=== PATIENT | female | born 1955 | race Hispanic/Latino ===

== ENCOUNTER 2022-02-18 16:41 | Emergency (ER) | payer OTHER ==
[2022-02-18] MEDS ORDERED: HYDROCODONE/APAP 5/325 MG TAB ONE (18:31)
--- NOTE | 2022-02-18 19:05 | RAD REPORT ---
EXAM DESCRIPTION: CT - CTHCSPWOC - 02/18/2022 6:45 pm CLINICAL HISTORY: fall COMPARISON: <Comparisons> TECHNIQUE: Axial 5 mm thick images of the head were obtained. Axial 2 mm thick images of the cervic al spine were obtained with sagittal and coronal reconstruction images generated and reviewed. All CT scans are performed using dose optimization technique as appropriate and may include automated exposure control or mA/KV adjustment according to patient size. FINDINGS: No intracranial hemorrhage, mass, edema or acute intracranial finding. No suspicion for ac flandreau cortical level infarction infarction. No cortical edema or sulcal effacement. Atrophy is progress ed minimally since 2014. Focal areas of diminished attenuation near each genu of the internal capsule are new from 2014 and have the appearance of old lacune or infarctions. Chronic ischemic changes are minimal. Ventricles are in proportion to any volume loss. Mastoid air cells and paranasal sinuses ar e clear. No globe or orbit abnormality seen. No skull fracture. No measurable scalp hematoma. Move Cervical bodies are normal in height. C5-6 well-healed fusion surgical changes are noted. C4-5 disc s pace is narrowed with very slight retrolisthesis of C4. This is progressive from the prior study. C6- 7 disc space narrowing not substantially different from 2014. Mild bony foraminal encroachment at C6- 7. No fracture or acute bony abnormality. No pathologic bone process. Central canal detail is inheren tly limited. No paraspinal mass or hematoma. IMPRESSION: Negative CT head examination for acute or significant finding. Negative CT cervical spine examination for acute finding. Progressive degenerative change at the C4- 5 disc level since 2014.
--- NOTE | 2022-02-18 19:10 | RAD REPORT ---
EXAM DESCRIPTION: RAD - Humerus Right - 02/18/2022 6:44 pm CLINICAL HISTORY: fall COMPARISON: No comparisons FINDINGS: No fracture is identified. There is no dislocation or periosteal reaction noted. AC joint degenerative changes are present. There is moderate superiorly directed spurring and capsular thicken ing. Inferiorly directed spurring is minimal. Acromial humeral joint space is normal thickness. No jackman spicious soft tissue calcification. No foreign body or other soft tissue abnormality. IMPRESSION: Negative right humerus examination for acute finding.
--- NOTE | 2022-02-18 19:11 | RAD REPORT ---
EXAM DESCRIPTION: RAD - Humerus Left - 02/18/2022 6:44 pm CLINICAL HISTORY: Fall, arm pain COMPARISON: None. FINDINGS: No fracture is identified. There is no dislocation or periosteal reaction noted. AC joint degenerative changes minimal. No AC separation. Acromial humeral joint space is normal range. No for eign body or other soft tissue abnormality. IMPRESSION: Negative left humerus examination for acute finding.
--- NOTE | 2022-02-18 19:12 | RAD REPORT ---
EXAM DESCRIPTION: RAD - Hand Right 3 View - 02/18/2022 6:44 pm CLINICAL HISTORY: fall COMPARISON: No comparisons FINDINGS: No fracture is identified. There is no dislocation or periosteal reaction noted. IP joint space narrowing is present with minimal spurring along the articular margins. No erosive component. M CP joints are generally spared any significant degree of degenerative change. No foreign body or sign ificant soft tissue abnormality. IMPRESSION: Negative right hand examination for acute finding.
--- NOTE | 2022-02-18 19:13 | RAD REPORT ---
EXAM DESCRIPTION: RAD - Hand Left 3 View - 02/18/2022 6:44 pm CLINICAL HISTORY: fall COMPARISON: None. FINDINGS: No fracture, dislocation or periosteal reaction noted. IP joint space narrowing is present with minimal marginal spurring. No erosive component. MCP joints are generally spared. No foreign bruno dy or other soft tissue abnormality. IMPRESSION: Negative left hand examination for acute finding.
--- NOTE | 2022-02-18 19:29 | EDPHYS ---
Physician Documentation [facility] Name: Amisha Easley Age: 66 yrs Sex: Female : 1955 Arrival Date: 02/18/2022 Time: 16:44 Bed 6 Private MD: ED Physician Saurabh Howard HPI: 02/18 17:40 This 66 yrs old Female presents to ER via Ambulatory with complaints of Fall jmm Injury. 17:40 Details of fall: The patient fell from an upright position, while walking. Onset: The jmm symptoms/episode began/occurred acutely, just prior to arrival. Associated injuries: The patient sustained injury to the head. This is a 66 year old female that presents to the ED with complaints of headache, arm pain and hand pain following a fall which occurred last night. patient states she tripped, hitting her head against a coffee table. Denies LOC, nausea. vomiting. Denies lower extremity, or hip pain. Historical: - Allergies: 17:09 No Known Allergies; bess - Home Meds: 17:09 lisinopril 10 mg Oral tab 1 tab once daily [Active]; pt take medications from [facility] bess [Active]; Iron CR 250 mg Oral cpER [Active]; 17:12 Xanax 0.25 mg Oral tab 1 tab daily [Active]; tizanidine 2 mg oral cap 1 cap once daily bess [Active]; - Immunization history: Last tetanus immunization: > 10 years ago. - Social history:: Smoking status: Patient denies any tobacco usage or history of. ROS: 17:40 Constitutional: Negative for fever, chills, and weight loss, Cardiovascular: Negative jmm for chest pain, palpitations, and edema, Respiratory: Negative for shortness of breath, cough, wheezing, and pleuritic chest pain. 17:40 MS/extremity: Positive for injury or acute deformity. 17:40 Neuro: Positive for headache. 17:40 All other systems are negative. Exam: 17:40 Constitutional: This is a well developed, well nourished patient who is awake, alert, jmm and in no acute distress. 17:40 Eyes: EOMI, no conjunctival erythema appreciated ENT: Moist Mucus Membranes Neck: Trachea midline, Supple Chest/axilla: Normal chest wall appearance and motion. Cardiovascular: Regular rate and rhythm. No edema appreciated Respiratory: Normal respirations, no respiratory distress appreciated Abdomen/GI: Non distended Back: Normal ROM Skin: General appearance color normal 17:40 Constitutional: The patient appears in no acute distress, alert, awake. 17:40 Head/face: abrasion noted to the forehead. 17:40 Musculoskeletal/extremity: right and left upper arm and hands ttp, full radial pulse bilaterally, full tumbling barrel painter strength, NVI. 17:40 Skin: Appearance: Color: normal in color. 17:40 Neuro: Orientation: is normal, Mentation: is normal, Memory: is normal. 17:40 Psych: Behavior/mood is pleasant, cooperative. Vital Signs: 17:05 BP 106 / 77; Pulse 97; Resp 17; Temp 98.2(O); Pulse Ox 98% on R/A; Weight 46.27 kg; bess Height 5 ft. 1 in. (154.94 cm); 19:42 BP 110 / 83; Pulse 86; Resp 16; Pulse Ox 100% on R/A; jb4 17:05 Body Mass Index 19.27 (46.27 kg, 154.94 cm) bess Bro Coma Score: 17:05 Eye Response: spontaneous(4). Verbal Response: oriented(5). Motor Response: obeys bess commands(6). Total: 15. Trauma Score (Adult): 17:05 Eye Response: spontaneous(1); Verbal Response: oriented(1); Motor Response: obeys bess commands(2); Systolic BP: > 89 mm Hg(4); Respiratory Rate: 10 to 29 per min(4); [place] Score: 15; Trauma Score: 12 MDM: 17:40 Patient medically screened. dwayne 19:27 Data reviewed: vital signs, nurses notes. Counseling: I had a detailed discussion with dwayne the patient and/or guardian regarding: the historical points, exam findings, and any diagnostic results supporting the discharge/admit diagnosis, radiology results, the need for outpatient follow up, to return to the emergency department if symptoms worsen or persist or if there are any questions or concerns that arise at home. 02/18 18:12 Order name: Hand Left 3 View; Complete Time: 19:21 EDNY 02/18 18:12 Order name: Hand Right 3 View; Complete Time: 19:21 EDNY 02/18 18:12 Order name: Humerus Left; Complete Time: 19:21 EDMS 02/18 18:12 Order name: Humerus Right; Complete Time: 19:21 EDMS 02/18 18:21 Order name: Head C Spine Mpr Wo Con; Complete Time: 19:21 EDMS Administered Medications: 18:25 Drug: HYDROcodone-acetaminophen 5 mg-325 mg 1 tabs Route: PO; jl7 Disposition Summary: 02/18/22 19:28 Discharge Ordered Location: Home [facility] Condition: Stable [facility] Diagnosis - Unspecified injury of head, initial encounter [facility] - Arm Contusion [facility] Followup: [facility] - With: Private Physician - When: 2 - 3 days - Reason: Recheck today's complaints, Continuance of care, Re-evaluation by your physician Discharge Instructions: - Discharge Summary Sheet [facility] - Head Injury, Adult [facility] Forms: - Medication Reconciliation Form [facility] - Thank You Letter [facility] - Antibiotic Education [facility] - Prescription Opioid Use [facility] Prescriptions: - orphenadrine citrate 100 mg Oral Tablet Sustained Release - take 1 tablet by ORAL route 2 times per day As needed; 20 tablet; Refills: 0, [facility] Product Selection Permitted Signatures: Dispatcher [employer] EDMS Reji Billy PA PA jmm Leal, Jahala, RN RN jl7 Brinda-Alize Boss RN RN bess Corrections: (The following items were deleted from the chart) 18:21 18:12 C Spine Wo Con ordered. EDMS EDMS 18:46 18:35 Humerus Left+RAD.RAD.BRZ ordered. EDMS EDMS 18:46 18:35 Humerus Right+RAD.RAD.BRZ ordered. EDMS EDMS 18:48 18:35 Head C Spine MPR Wo Con+CT.RAD.BRZ ordered. EDMS EDMS 18:48 18:35 Hand Left 3 View+RAD.RAD.BRZ ordered. EDMS EDMS 18:48 18:35 Hand Right 3 View+RAD.RAD.BRZ ordered. EDMS EDMS
--- NOTE | 2022-02-18 19:29 | ER ---
Nurse's Notes [facility] Name: Amisha Easley Age: 66 yrs Sex: Female : 1955 Arrival Date: 02/18/2022 Time: 16:44 Bed 6 Private MD: Diagnosis: Unspecified injury of head, initial encounter;Arm Contusion Presentation: 02/18 17:05 Chief complaint: Patient states: pt presented to ED reporting trip and fall on bess 02-17-2022. hitting coffee table. denies loc. and not on blodd thinners. pt injured nose, bruising on forehead and bilateral arm/ wrist pain. Care prior to arrival: None. Mechanism of Injury: Fall. Trauma event details: Injury occurred: February 17, 2022. 17:05 Acuity: LISSETTE 3 bess 17:05 Method Of Arrival: Ambulatory Trauma Activation: Consult Physician: ED Physician; Name: ; Notified At: ; Arrived At: Physician: General Surgeon; Name: ; Notified At: ; Arrived At: Physician: Radiology; Name: ; Notified At: ; Arrived At: Physician: Respiratory; Name: ; Notified At: ; Arrived At: Physician: Lab; Name: ; Notified At: ; Arrived At: Historical: - Allergies: 17:09 No Known Allergies; bess - Home Meds: 17:09 lisinopril 10 mg Oral tab 1 tab once daily [Active]; pt take medications from [facility] bess [Active]; Iron CR 250 mg Oral cpER [Active]; 17:12 Xanax 0.25 mg Oral tab 1 tab daily [Active]; tizanidine 2 mg oral cap 1 cap once daily bess [Active]; - Immunization history: Last tetanus immunization: > 10 years ago. - Social history:: Smoking status: Patient denies any tobacco usage or history of. Primary Survey: 17:05 NO uncontrolled hemorrhage observed. A: The client is awake and alert. The airway is bess patent. The client is alert. Breathing/Chest: Spontaneous respiratory effort, equal unlabored respirations, breath sounds clear bilaterally, regular pattern, symmetrical chest rise and fall. Circulation: No external hemorrhage present. Regular and strong central pulse, skin warm/dry/normal color. Disability Client is alert. Assessment: 17:05 General: Appears in no apparent distress. Behavior is calm, cooperative. Pain: bess Complains of pain in right arm, left arm and nose. 19:42 Reassessment: Patient appears in no apparent distress at this time. Patient and/or jb4 family updated on plan of care and expected duration. Pain level reassessed. Patient is alert, oriented x 3, equal unlabored respirations, skin warm/dry/pink. Vital Signs: 17:05 BP 106 / 77; Pulse 97; Resp 17; Temp 98.2(O); Pulse Ox 98% on R/A; Weight 46.27 kg; bess Height 5 ft. 1 in. (154.94 cm); 19:42 BP 110 / 83; Pulse 86; Resp 16; Pulse Ox 100% on R/A; jb4 17:05 Body Mass Index 19.27 (46.27 kg, 154.94 cm) bess Bro Coma Score: 17:05 Eye Response: spontaneous(4). Verbal Response: oriented(5). Motor Response: obeys bess commands(6). Total: 15. Trauma Score (Adult): 17:05 Eye Response: spontaneous(1); Verbal Response: oriented(1); Motor Response: obeys bess commands(2); Systolic BP: > 89 mm Hg(4); Respiratory Rate: 10 to 29 per min(4); [place] Score: 15; Trauma Score: 12 ED Course: 16:44 Patient arrived in ED. jj6 17:08 Triage completed. 17:32 Reji Billy PA is PHCP. [facility] 17:32 Saurabh Howard MD is Attending Physician. [facility] 17:35 Mathew Nails, SANJUANA is Primary Nurse. jl7 18:45 Hand Left 3 View In Process Unspecified. EDMS 18:45 Hand Right 3 View In Process Unspecified. EDMS 18:45 Humerus Left In Process Unspecified. EDMS 18:45 Humerus Right In Process Unspecified. EDMS 18:48 Head C Spine Mpr Wo Con In Process Unspecified. EDMS 19:42 No provider procedures requiring assistance completed. Patient did not have IV access jb4 during this emergency room visit. Administered Medications: 18:25 Drug: HYDROcodone-acetaminophen 5 mg-325 mg 1 tabs Route: PO; jl7 Medication: 19:42 VIS not applicable for this client. jb4 Intake: 17:05 PO: 0ml; Total: 0ml. bess Outcome: 19:28 Discharge ordered by . dwayne 19:42 Discharged to home via wheelchair, with family. jb4 19:42 Condition: stable 19:42 Discharge instructions given to patient, Instructed on discharge instructions, follow up and referral plans. no drinking with medication, no driving heavy equipment, medication usage, Demonstrated understanding of instructions, follow-up care, medications, Prescriptions given X 1. 19:43 Patient left the ED. jb4 Signatures: Dispatcher [employer] EDMS Reji Billy PA PA jmm Bryson, James, RN RN jb4 Mathew Nails RN RN jl7 Priti Altamirano jj6 Alize Diaz RN RN bess
[2022-02-18 19:47] VITALS: TEMP 98.2
[2022-02-18 19:50] VITALS: BP 110/83; O2SAT 100
== END 2022-02-18 19:43 | disposition home or self-care (01) ==
LOC: ER 16:41
DX: S00.83XA Contusion of other part of head, initial encounter (principal); W01.190A Fall on same level from slipping, tripping and stumbling with subsequent striking against furniture, initial encounter; R51.9 Headache, unspecified; M25.532 Pain in left wrist; M25.531 Pain in right wrist; S40.029A Contusion of unspecified upper arm, initial encounter
CPT/HCPCS: 70450; 72125; 99283

== ENCOUNTER 2024-04-18 02:37 | Emergency (ER) | payer OTHER ==
[2024-04-18] MEDS ORDERED: LORazepam 2 MG/ML VIAL ONE (02:52)
[2024-04-18] MEDS ORDERED: LIDOCAINE 1% 20 ML MDV ONE (03:23)
[2024-04-18 03:47] LABS: PT Prothrombin Time 11.5 SECONDS (9.4-12.5); Protime INR 1.03
[2024-04-18 03:53] LABS: Absolute Lymphocytes (CBC) 2.1 K/uL (0.7-4.9); Absolute Monocytes 0.4 K/uL (0.1-1.3); Basophils % 0.4 % (0-1.3); Eosinophils % 0.6 % (0-4.4); Hematocrit 32.9 % (36.0-45.0); Hemoglobin 10.7 g/dL (12.0-15.0); Lymphocytes % 27.8 % (15.3-44.8); MCH 29.1 pg (27.0-35.0); MCHC 32.5 g/dL (32.0-36.0); MCV 89.5 fL (80-100); MPV 9.7 fL (7.6-11.3); Monocytes % 5.7 % (3.3-12.3); Neutrophils % 65.5 % (41.7-73.7); Platelets 186 thou/uL (152-406); RBC Red Blood Cell Count 3.68 M/uL (3.86-4.86)
[2024-04-18 04:02] LABS: Albumin 3.1 g/dL (3.4-5.0); Albumin/Globulin Ratio 0.7 (1.1-1.8); Anion Gap 9.3 mEq/L (5.0-15.0); Bilirubin Direct 0.2 mg/dL (0-0.2); Bilirubin Indirect, Calculated 0.2 mg/dL (0.2-0.8); Bilirubin Total 0.4 mg/dL (0.2-1.0); Globulin 4.2 g/dL (2.3-3.5); Potassium 4.3 mEq/L (3.5-5.1); Protein, Total 7.3 g/dL (6.4-8.2); Troponin High Sensitivity 4.4 pg/mL (<58.9)
--- NOTE | 2024-04-18 06:47 | ER ---
Nurse's Notes [facility] Name: Amisha Easley Age: 68 yrs Sex: Female : 1955 Arrival Date: 04/18/2024 Time: 02:37 Bed 15 Private MD: Diagnosis: Facial Laceration/ Laceration without foreign body of cheek and temporomandibular area;Fall at home, acute facial injury, acute head injury, insomnia, Presentation: 04/18 02:40 Chief complaint: EMS states: PT FELL. POSSIBLY TOOK TO MUCH OF HER AMBIEN AND XANAX. PT jj7 IS CONFUSED. Coronavirus screen: At this time, the client does not indicate any symptoms associated with coronavirus-19. Ebola Screen: No symptoms or risks identified at this time. Initial Sepsis Screen: Does the patient meet any 2 criteria? No. Patient's initial sepsis screen is negative. Does the patient have a suspected source of infection? No. Patient's initial sepsis screen is negative. Risk Assessment: Do you want to hurt yourself or someone else? Patient reports no desire to harm self or others. Onset of symptoms was April 18, 2024. 02:40 Method Of Arrival: Ambulatory [facility] 02:40 Acuity: LISSETTE 3 jj7 Triage Assessment: 02:44 General: Appears in no apparent distress. comfortable, Behavior is calm, cooperative, jj7 appropriate for age. Pain: Denies pain. Neuro: Level of Consciousness is awake, alert, obeys commands, confused, Oriented to person, time. Derm: Wound noted lateral canthus of right eye Wound is SMALL SKIN TEAR. Historical: - Allergies: 02:44 No Known Allergies; jj7 - PMHx: 02:44 Hypertensive disorder; jj7 - Immunization history:: Adult Immunizations up to date, Client reports receiving the 2nd dose of the Covid vaccine. - Infectious Disease History:: Denies. - Social history:: Smoking status: Patient denies any tobacco usage or history of. Patient/guardian denies using alcohol, street drugs, IV drugs. - Family history:: not pertinent. Screenin:40 [facility] ED Fall Risk Assessment (Adult) History of falling in the last 3 months, rg5 including since admission No falls in past 3 months (0 pts) Confusion or Disorientation Yes (5 pts) Intoxicated or Sedated No (0 pts) Impaired Gait No (0 pts) Mobility Assist Device Used No (0 pt) Altered Elimination No (0 pt) Score/Fall Risk Level 3 or more points = High Risk Oriented to surroundings, Maintained a safe environment, Educated pt \T\ family on fall prevention, incl call for assistance when getting out of bed, Hourly rounding (assess needs \T\ fall precautionary measures) done. Abuse screen: Denies threats or abuse. Nutritional screening: No deficits noted. Tuberculosis screening: No symptoms or risk factors identified. Vital Signs: 02:30 BP 119 / 69; Pulse 67; Resp 16; Temp 98.3(O); Pulse Ox 98% ; Pain 0/10; rg5 02:40 BP 119 / 75; Pulse 66; Resp 18; Pulse Ox 98% ; Weight 54.43 kg; Height 5 ft. 2 in. ; jj7 Pain 0/10; 03:30 BP 115 / 70; Pulse 67; Resp 17; Pulse Ox 98% on R/A; Pain 0/10; rg5 04:30 BP 125 / 79; Pulse 65; Resp 17; Pulse Ox 99% on R/A; rg5 05:16 BP 110 / 86; Pulse 65; Pulse Ox 99% on R/A; Pain 0/10; rg5 02:40 Body Mass Index 21.95 (54.43 kg, 157.48 cm) jj7 02:30 Pain Scale: Adult rg5 02:40 Pain Scale: Adult jj7 03:30 Pain Scale: Adult rg5 05:16 Pain Scale: Adult rg5 Bro Coma Score: 15:49 Eye Response: spontaneous(4). Motor Response: obeys commands(6). Verbal Response: sp4 oriented(5). Total: 15. ED Course: 02:39 Patient arrived in ED. gm2 02:40 Patient has correct armband on for positive identification. Bed in low position. Call rg5 light in reach. Side rails up X 1. 02:40 No provider procedures requiring assistance completed. Inserted saline lock: 20 gauge rg5 in left antecubital area, using aseptic technique. Blood collected. Flushed with 10 mL NS. 02:44 Triage completed. jj7 02:44 Arm band placed on right wrist. Patient placed in an exam room, on a stretcher. jj7 02:47 Potepalov, Oswaldo, MD is Attending Physician. sp4 02:48 Magnus Dave, RN is Primary Nurse. rg5 03:21 CT Head C Spine In Process Unspecified. EDMS 03:22 XRAY Chest (1 view) In Process Unspecified. EDMS 06:45 Yadiel Hooker DO is Referral Physician. sp4 07:11 IV discontinued, intact, bleeding controlled, No redness/swelling at site. Pressure kc6 dressing applied. Administered Medications: 05:42 Not Given (meds not availablee): boostrix tdap0.5 ml IM once; as a single dose rg5 07:00 Drug: Lidocaine Infiltration (1 %) 20 ml 20 ml Infiltration once; to bedside Volume: 20 rg5 ml; Route: Infiltration; Medication: 05:37 VIS not applicable for this client. rg5 Outcome: 06:46 Discharge ordered by MD. sp4 07:11 Discharged to home ambulatory, with family, kc6 07:11 Condition: good 07:11 Discharge instructions given to patient, family, Instructed on discharge instructions, follow up and referral plans. no drinking with medication, no driving heavy equipment, medication usage, wound care, Demonstrated understanding of Prescriptions given X 1, 07:11 Patient left the ED. kc6 Signatures: Dispatcher [employer] Vesta Chand, RN RN kc6 Venus Hauser RN RN jj7 Oswaldo Judge MD MD sp4 Sara Avila [facility] Magnus Dave RN RN rg5
--- NOTE | 2024-04-18 06:47 | EDPHYS ---
Physician Documentation [facility] Name: Amisha Easley Age: 68 yrs Sex: Female : 1955 Arrival Date: 04/18/2024 Time: 02:37 Bed 15 Private MD: ED Physician Oswaldo Judge HPI: 04/18 05:26 This 68 yrs old Female presents to ER via Ambulatory with complaints of sp4 Altered Mental Status. 15:49 68 year old female presents with EMS with complaint of dizziness, feeling unwell and sp4 additional fall at home with right upper lateral facial laceration. Patient states she takes Xanax from [place] to help with insomnia but has ran out of it recently. . Historical: - Allergies: 02:44 No Known Allergies; jj7 - PMHx: 02:44 Hypertensive disorder; jj7 - Immunization history:: Adult Immunizations up to date, Client reports receiving the 2nd dose of the Covid vaccine. - Infectious Disease History:: Denies. - Social history:: Smoking status: Patient denies any tobacco usage or history of. Patient/guardian denies using alcohol, street drugs, IV drugs. - Family history:: not pertinent. ROS: 15:49 Constitutional: Negative for fever, chills, and weight loss, Positive dizziness, fall sp4 at home , facial laceration. 15:49 All other systems are negative, Exam: 15:49 Constitutional: This is a well developed, well nourished patient who is awake, alert, sp4 and in no acute distress. Head/Face: Normocephalic, Right lateral facial laceration in diagonal orientation just over right zygomatic arch. Eyes: Pupils equal round and reactive to light, extra-ocular motions intact. Lids and lashes normal. Conjunctiva and sclera are not injected. Cornea within normal limits. Periorbital areas with no swelling, redness, or edema. ENT: Nares patent. No nasal discharge, no septal abnormalities noted. Tympanic membranes are normal and external auditory canals are clear. Oropharynx with no redness, swelling, or masses, exudates, or evidence of obstruction, uvula midline. Mucous membranes moist. Neck: Trachea midline, no thyromegaly or masses palpated, and no cervical lymphadenopathy. Supple, full range of motion without nuchal rigidity, or vertebral point tenderness. Chest/axilla: Normal chest wall appearance and motion. Nontender with no deformity. No lesions are appreciated. Cardiovascular: Regular rate and rhythm with a normal S1 and S2. No gallops, murmurs, or rubs. Normal PMI, no JVD. No pulse deficits. Respiratory: Lungs have equal breath sounds bilaterally, clear to auscultation and percussion. No rales, rhonchi or wheezes noted. No increased work of breathing, no retractions or nasal flaring. Abdomen/GI: Soft, with normal bowel sounds. No distension or tympany. No guarding or rebound. No evidence of tenderness throughout. Back: No spinal tenderness. No costovertebral tenderness. Skin: Warm, dry with normal turgor. Normal color with no rashes, no lesions, and no evidence of cellulitis. MS/ Extremity: Pulses equal, no cyanosis. Neurovascular intact. Full, normal range of motion. Neuro: Awake and alert, GCS 15, oriented to person, place, time, and situation. Cranial nerves II-XII grossly intact. Motor strength 5/5 in all extremities. Sensory grossly intact. Psych: Awake, alert, with orientation to person, place and time. Behavior, mood, and affect are within normal limits Vital Signs: 02:30 BP 119 / 69; Pulse 67; Resp 16; Temp 98.3(O); Pulse Ox 98% ; Pain 0/10; rg5 02:40 BP 119 / 75; Pulse 66; Resp 18; Pulse Ox 98% ; Weight 54.43 kg; Height 5 ft. 2 in[address] ; [facility] Pain 0/10; 03:30 BP 115 / 70; Pulse 67; Resp 17; Pulse Ox 98% on R/A; Pain 0/10; rg5 04:30 BP 125 / 79; Pulse 65; Resp 17; Pulse Ox 99% on R/A; rg5 05:16 BP 110 / 86; Pulse 65; Pulse Ox 99% on R/A; Pain 0/10; rg5 02:40 Body Mass Index 21.95 (54.43 kg, 157.48 cm) [facility] 02:30 Pain Scale: Adult 5 02:40 Pain Scale: Adult j7 03:30 Pain Scale: Adult 5 05:16 Pain Scale: Adult 5 Eagan Coma Score: 15:49 Eye Response: spontaneous(4). Motor Response: obeys commands(6). Verbal Response: sp4 oriented(5). Total: 15. Laceration: 15:53 Wound Repair of 3cm ( 1.2in ) subcutaneous laceration to right zygomatic area - sp4 diagonal orientation 3 cm long , jagged edges . Irregularly shaped.. Distal neuro/vascular/tendon intact. Anesthesia: Wound infiltrated with 10 mls of 1% lidocaine. Wound prep: Moderate cleansing by me, Copious irrigation. Skin closed with 7 6-0 Prolene using interrupted sutures and sterile technique. Dressed with Left to air . Patient tolerated well. MDM: 03:02 Patient medically screened. sp4 05:25 ED course: EXAM DESCRIPTION: Head C Spine Mpr Wo Con CLINICAL HISTORY: head injury sp4 COMPARISON: 02/18/2022 TECHNIQUE: Axial CT of the head obtained from the skull apex to the skull base without contrast. Axial CT images of the cervical spine obtained without contrast. This exam was performed according to our departmental dose-optimization program, which includes automated exposure control, adjustment of the mA and/or kV according to patient size and/or use of iterative reconstruction technique. FINDINGS: Head CT: No acute intracranial hemorrhage identified. No mass, mass effect, shift of the midline, abnormal extra-axial fluid collection or CT evidence of acute ischemic change identified. The ventricular system and sulcal spaces are mildly enlarged compatible with mild cerebral atrophy. Scattered areas of hypodensity throughout the supratentorial white matter are nonspecific and may be related to chronic small vessel ischemic change. The visualized paranasal sinuses and the mastoids are clear. No skull fracture identified. Visualized orbits and globes are unremarkable. Atherosclerotic calcification of the intracranial internal carotid arteries. Cervical CT : Straightening of the cervical lordosis may be secondary to patient positioning. Anterior fusion station and discectomy at the 5/6. The atlantoaxial, atlantodental, and occipitoatlantal intervals are preserved. No fracture identified. Vertebral body height preserved. Prevertebral soft tissues are unremarkable. Mild multilevel loss of intervertebral disc height with endplate spondylosis, facet arthropathy, and uncovertebral spurring. Posterior disc osteophyte complex at multiple levels mildly encroach upon the anterior spinal canal. Mild neural foraminal narrowing. Visualized skull base is intact. Visualized mastoid air cells and paranasal sinuses are well aerated. Visualized thyroid is unremarkable. No cervical lymphadenopathy. No pneumothorax in the visualized lung apices. IMPRESSION: 1. No acute intracranial abnormality by CT criteria. 2. No acute fracture or subluxation of the cervical spine. 3. Moderate multilevel degenerative change of the cervical spine. Anterior fixation at C5/6.. 05:53 ED course: CLINICAL HISTORY: Chest pain. COMPARISON: None. TECHNIQUE: XR CHEST 1 VIEW sp4 04/18/2024 2:47 AM CDT FINDINGS: Cardiac silhouette is normal in size. Lungs are clear without consolidation, atelectasis, mass or edema. There is no pleural effusion. There is no pneumothorax. There are no acute osseous findings. IMPRESSION: Clear lungs. . 15:53 Differential Diagnosis: electrolyte abnormality, alcohol intoxication, volume sp4 depletion. Data reviewed: vital signs, nurses notes, EMS record, old medical records, lab test result(s), EKG, radiologic studies, CT scan, plain films. 15:53 ED course: Patient requested Xanax, We have informed patient that we cannot provide sp4 Xanax but will prescribe 2 mg PRN Valium until she can see her Physician for additional management of insomnia . 04/18 02:47 Order name: Blood Culture Adult (2) sp4 04/18 02:47 Order name: Basic Metabolic Panel; Complete Time: 06:06 sp4 04/18 02:47 Order name: CBC with Diff; Complete Time: 06:06 sp4 04/18 02:47 Order name: LFT's; Complete Time: 06:06 sp4 04/18 02:47 Order name: Magnesium; Complete Time: 06:06 sp4 04/18 02:47 Order name: NT PRO-BNP; Complete Time: 06:06 sp4 04/18 02:47 Order name: PT-INR; Complete Time: 06:06 sp4 04/18 02:47 Order name: Troponin HS; Complete Time: 06:06 sp4 04/18 02:48 Order name: Lactate w/ 2H reflex if indic.; Complete Time: 06:06 sp4 04/18 02:48 Order name: CK; Complete Time: 06:06 sp4 04/18 02:47 Order name: XRAY Chest (1 view) 4 04/18 03:08 Order name: CT Head C Spine sp4 04/18 02:47 Order name: EKG; Complete Time: 02:48 sp4 04/18 02:47 Order name: Cardiac monitoring; Complete Time: 02:49 sp4 04/18 02:47 Order name: EKG - Nurse/Tech; Complete Time: 03:13 sp4 04/18 02:47 Order name: IV Saline Lock; Complete Time: 02:49 sp4 04/18 02:47 Order name: Labs collected and sent; Complete Time: 03:13 sp4 04/18 02:47 Order name: O2 Per Protocol; Complete Time: 02:49 sp4 04/18 02:47 Order name: O2 Sat Monitoring; Complete Time: 02:49 sp4 04/18 03:09 Order name: Dressing - Wound; Complete Time: 03:12 sp4 04/18 03:09 Order name: Gloves, Sterile; Complete Time: 03:12 sp4 04/18 03:09 Order name: Setup Suture Tray; Complete Time: 07:00 sp4 Administered Medications: 05:42 Not Given (meds not availablee): boostrix tdap0.5 ml IM once; as a single dose rg5 07:00 Drug: Lidocaine Infiltration (1 %) 20 ml 20 ml Infiltration once; to bedside Volume: 20 rg5 ml; Route: Infiltration; Disposition: 15:57 Chart complete. sp4 Disposition Summary: 04/18/24 06:46 Discharge Ordered Notes: Location: Home sp4 Problem: new sp4 Symptoms: have improved sp4 Condition: Stable sp4 Diagnosis - Facial Laceration/ Laceration without foreign body of cheek and temporomandibular sp4 area - Fall at home, acute facial injury, acute head injury, insomnia, sp4 Followup: sp4 - With: Private Physician - When: 7 - 10 days - Reason: Recheck today's complaints Followup: sp4 - With: Yadiel Hooker DO - When: 7 - 10 days - Reason: Recheck today's complaints Discharge Instructions: - Discharge Summary Sheet sp4 - Facial Laceration, [id number] sp4 Forms: - Patient Portal Instructions sp4 Prescriptions: - Valium 2 mg Oral tablet - take 1 tablet ORAL route once daily As needed PRN insomnia or anxiety; 20 sp4 tablet; Refills: 0, Product Selection Permitted Signatures: Dispatcher [facility] Venus Grimm RN RN jj7 Oswaldo Judge MD MD sp4 Magnus Dave RN RN rg5 Corrections: (The following items were deleted from the chart) 02:48 02:48 BASIC METABOLIC PANEL+C.LAB.BRZ ordered. EDMS EDMS 02:48 02:48 CBC+H.LAB.BRZ ordered. EDMS EDMS 02:48 02:48 HEPATIC FUNCTION+C.LAB.BRZ ordered. EDMS EDMS 02:48 02:48 MAGNESIUM+C.LAB.BRZ ordered. EDMS EDMS 02:48 02:48 PROBNP+C.LAB.BRZ ordered. EDMS EDMS 02:48 02:48 PROTIME (+INR)+COAG.LAB.BRZ ordered. EDMS EDMS 02:48 02:48 Troponin High Sensitivity+C.LAB.BRZ ordered. EDMS EDMS 02:48 02:48 Urinalysis W/Microscopic+U.LAB.BRZ ordered. EDMS EDMS 02:48 02:48 BLOOD CULTURE*+BA.LAB.BRZ ordered. EDMS EDMS 02:48 02:48 LACTATE+C.LAB.BRZ ordered. EDMS EDMS 02:48 02:48 CREATINE PHOSPHOKINASE+C.LAB.BRZ ordered. EDMS EDMS
[2024-04-18 07:20] VITALS: O2SAT 99
[2024-04-18 07:22] VITALS: BP 110/86
--- NOTE | 2024-04-19 13:12 | RAD REPORT ---
EXAM DESCRIPTION: Head C Spine Mpr Wo Con CLINICAL HISTORY: Head injury COMPARISON: 02/18/2022 TECHNIQUE: Axial CT of the head obtained from the skull apex to the skull base without contrast. Axi al CT images of the cervical spine obtained without contrast. This exam was performed according to [facility] departmental dose-optimization program, which includes automated exposure control, adjustment of th e mA and/or kV according to patient size and/or use of iterative reconstruction technique. FINDINGS: Head CT: No acute intracranial hemorrhage identified. No mass, mass effect, shift of the midline, abnormal ext ra-axial fluid collection or CT evidence of acute ischemic change identified. The ventricular system and sulcal spaces are mildly enlarged compatible with mild cerebral atrophy. Scattered areas of hyp odensity throughout the supratentorial white matter are nonspecific and may be related to chronic sma ll vessel ischemic change. The visualized paranasal sinuses and the mastoids are clear. No skull fracture identified. Visualiz ed orbits and globes are unremarkable. Atherosclerotic calcification of the intracranial internal car otid arteries. Cervical CT : Straightening of the cervical lordosis may be secondary to patient positioning. Anterior fusion stati on and discectomy at the 5/6. The atlantoaxial, atlantodental, and occipitoatlantal intervals are p reserved. No fracture identified. Vertebral body height preserved. Prevertebral soft tissues are unremarkable. Mild multilevel loss of intervertebral disc height with endplate spondylosis, facet arthropathy, and uncovertebral spurring. Posterior disc osteophyte complex at multiple levels mildly encroach upon the anterior spinal canal. Mild neural foraminal narrowing. Visualized skull base is intact. Visualized mastoid air cells and paranasal sinuses are well aerat ed. Visualized thyroid is unremarkable. No cervical lymphadenopathy. No pneumothorax in the visualized lung apices. IMPRESSION: 1. No acute intracranial abnormality by CT criteria. 2. No acute fracture or subluxation of the cervical spine. 3. Moderate multilevel degenerative change of the cervical spine. Anterior fixation at C5/6. Electronically signed by: Clifford Stout DO 04/18/2024 03:58 AM CDT RP [id number] Due to temporary technical issues with the PACS/Fluency reporting system, reports are being signed by the in house radiologist without review as a courtesy to ensure prompt reporting. The interpreting r adiologist is fully responsible for the content of the report.
--- NOTE | 2024-04-19 13:14 | RAD REPORT ---
EXAM DESCRIPTION: XR CHEST 1 VIEW CLINICAL HISTORY: Chest pain. COMPARISON: None. TECHNIQUE: XR CHEST 1 VIEW 04/18/2024 2:47 AM CDT FINDINGS: Cardiac silhouette is normal in size. Lungs are clear without consolidation, atelectasis, mass or edema. There is no pleural effusion. There is no pneumothorax. There are no acute osseous fin dings. IMPRESSION: Clear lungs. Electronically signed by: Bebeto Arellano MD 04/18/2024 04:20 AM CDT RP Due to temporary technical issues with the PACS/Fluency reporting system, reports are being signed by the in house radiologist without review as a courtesy to ensure prompt reporting. The interpreting r adiologist is fully responsible for the content of the report.
--- NOTE | 2024-04-20 12:44 | EKG ---
Test Date: 2024-04-18 Test Time: 02:57:28 [employer]: TY MEASUREMENT RESULTS: Intervals: Rate: 62 MO: 146 QRSD: 86 QT: 430 QTc: 436 Curtice: P: 41 MO: 146 QRS: 21 T: 47 INTERPRETIVE STATEMENTS: Normal sinus rhythm Normal ECG Compared to ECG 12/28/2013 01:52:30 Early repolarization no longer present Electronically Signed On 04-20-24 12:40:34 CDT by Emile Thorpe
== END 2024-04-18 07:11 | disposition home or self-care (01) ==
LOC: ER 02:37
DX: S01.411A Laceration without foreign body of right cheek and temporomandibular area, initial encounter (principal); S09.90XA Unspecified injury of head, initial encounter; G47.00 Insomnia, unspecified; W18.30XA Fall on same level, unspecified, initial encounter; Y92.009 Unspecified place in unspecified non-institutional (private) residence as the place of occurrence of the external cause; I10 Essential (primary) hypertension
CPT/HCPCS: 93005; 87040 ×2; 85025; 80048; 36415; 83735; 82550; 85610; 80076; 83605; 84484; 83880; 70450; 72125; 71045; 99284; 12013; J2001